=== PATIENT | female | born 1945 | race Caucasian/White ===

== ENCOUNTER 2024-11-18 15:34 | Emergency (ER) | payer OTHER ==
--- OUTSIDE RECORDS SUMMARY | 2024-11-18 15:38 | XMS REPORT | Continuity of Care Document ---
Author Name Unknown Address [address] [facility] [address] [place] [address] [facility] thconnect Address [address] [facility]. [address] [place] [address] Care Team Providers Care Dimension Specification Inspector Name Role Phone Armando Sheffield Attending Clinician Unavailable Porsche Norman L Attending Clinician Unavailable GC_GCBZW_Kadiyala_S Attending Clinician Unavaila ble GC_GCBZW_Kadiyala_S Admitting Clinician Unavaila ble Payers Payer Name Policy Type Policy Number Effective Date Expirati on Date Source [facility] MCR Advantage 1 [id number] 2020 00:00:00 [facility] (MEDICARE REPLACEMENT/ADVA NTAGE - PPO) [id number] Problems Condition Name Condition Details Condition Category Status Onset Date Resolution Date Last Treatment Date Treating Clinician Comments Source Osteoporos is Osteoporos is Problem Active 2023-10 00:00: 00 [facility] Glaucoma Glaucoma Problem Active 06-20 00:00: 00 [facility] Vitamin D deficiency Vitamin D Deficiency Problem Active 06-24 00:00: 00 [facility] Abnormal urine Abnormal Urine Problem Active 06-22 00:00: 00 [facility] Lateral cystocele Lateral Cystocele Problem Active 06-12 00:00: 00 [facility] Senile osteoporos is Senile Osteoporos is Problem Active 8 00:00: 00 [facility] Mixed urinary incontinen ce Mixed Urinary Incontinen ce Problem Active 8 00:00: 00 [facility] Inconclusi ve mammograph y finding Inconclusi ve Mammograph y Finding Problem Active 8 00:00: 00 [facility] Abnormal findings on diagnostic imaging of breast Abnormal Findings on Diagnostic Imaging of Breast Problem Active 06-12 00:00: 00 [facility] Screening mammograph y Screening Mammograph y Problem Active 06-12 00:00: 00 [facility] Screening for malignant neoplasm of colon Screening for Malignant Neoplasm of Colon Problem Active 06-12 00:00: 00 [facility] Gynecologi mary examinatio n abnormal Gynecologi mary Examinatio n Abnormal Problem Active 06-12 00:00: 00 [facility] Constipati on Constipati on Problem Active 6-11 00:00: 00 [facility] Genuine stress incontinen ce Genuine Stress Incontinen ce Problem Active 9-04 00:00: 00 [facility] Right upper quadrant pain Right Upper Quadrant Pain Problem Active 4-03 00:00: 00 [facility] Essential hypertensi on Essential Hypertensi on Problem Active 3-13 00:00: 00 [facility] 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 Problem Active 2-24 00:00: 00 [facility] Atrophic vaginitis Atrophic Vaginitis Problem Active 224 00:00: 00 [facility] Urinary incontinen ce Urinary Incontinen ce Problem Active 224 00:00: 00 [facility] Decreased hearing Decreased hearing Problem Common [facility] [id number] Irregular heart beat Problem Common [facility] [id number] Screening for cardiovasc ular condition Problem Common [facility] [id number] Adult general medical examinatio n Problem Common [facility] [id number] Elevated blood pressure reading Problem Common [facility] Age-relate d osteoporos is Osteoporos is, unspecifie d osteoporos is type, unspecifie d pathologic al fracture presence Problem Common [facility] [id number] Pneumococc al vaccine administer ed Problem [facility] Allergic rhinitis Allergic rhinitis, unspecifie d Problem [facility] Midline cystocele Cystocele, midline Problem [facility] Family history of malignant neoplasm of gastrointe stinal tract Family history of colon cancer Problem [facility] [id number] Atrial fibrillati on, unspecifie d type Problem [facility] Family history of cardiovasc ular disease Family history of cardiovasc ular disease Problem [facility] [id number] Mixed hyperlipid emia Problem [facility] [id number] Screening mammogram, encounter for Problem [facility]openia [id number] P[facility] (premature ventricula r contractio n) Problem [facility] [id number] Abnormal EKG Problem [facility] Hypercalce cody High calcium levels Problem [facility] Social History Social Habit Start Date Stop Date Quantity Comments Source History of Tobacco Use [facility] Sex Assigned At [facility] Smoking Status Start Date Stop Date Source Never Smoker [facility] Medications Ordered Medication Name Filled Medication Name Start Date Stop Date Current Medication? Ordering Clinician Indication Dosage Frequency Signature (SIG) Comments Components Source Alendronate Sodium 70 MG Alendronate Sodium 70 MG 2023-10 0-11 00:00: 00 No Alendronat e Sodium 70 MG PreserVisio n AREDS PreserVisio n AREDS No PreserVisi on AREDS Aspirin 81 MG Aspirin 81 MG No 1{table t} QD Aspirin 81 MG Travatan Z 0.004 % Travatan Z 0.004 % No 1{drop_ into_af fected_ eye_in_ the_eve rose mary} QD Travatan Z 0.004 % Restasis 0.05 % Restasis 0.05 % No 1{drop_ into_af fected_ eye} BID Restasis 0.05 % Estradiol 0.5 MG Estradiol 0.5 MG No 1{table t} QD Estradiol 0.5 MG Cranberry 450 MG Cranberry 450 MG No 1{table t} QD Cranberry 450 MG Vitamin D3 50 MCG (1999) Vitamin D3 50 MCG (1999) No 4{table ts} QD Vitamin D3 50 MCG (1999) Timolol Maleate 0.5 % Timolol Maleate 0.5 % No Timolol Maleate 0.5 % Calcium 600 Calcium 600 No Ca lcium 600 [facility] cranberry 400 mg capsule Take by oral route. cranberry 400 mg capsule Take by oral route. No cranberry 400 mg capsule Take by oral route. [facility] estradiol 0.01% (0.1 mg/gram) vaginal cream Insert 0.5 g 3 times a week by vaginal route at bedtime for 30 days. estradiol 0.01% (0.1 mg/gram) vaginal cream Insert 0.5 g 3 times a week by vaginal route at bedtime for 30 days. No .5g Q56H estradiol 0.01% (0.1 mg/gram) vaginal cream Insert 0.5 g 3 times a week by vaginal route at bedtime for 30 days. [facility] Multivitami n 50 Plus Multivitami n 50 Plus No Multivitam in 50 Plus [facility] omega3 1,000 mg-dha-epa- other [id number] oil 1,400 mg capsule,del ay rel Take by oral route. omega3 1,000 mg-dha-epa- other [id number] oil 1,400 mg capsule,del ay rel Take by oral route. No omega3 1,000 mg-dha-epa -other [id number] oil 1,400 mg capsule,de lay rel Take by oral route. [facility] PreserVisio n AREDS PreserVisio n AREDS No PreserVisi on AREDS [facility] Restasis 0.05 % eye drops in a dropperette INSTILL 1 DROP INTO AFFECTED EYE(S) BY OPHTHALMIC ROUTE EVERY 12 HOURS Restasis 0.05 % eye drops in a dropperette INSTILL 1 DROP INTO AFFECTED EYE(S) BY OPHTHALMIC ROUTE EVERY 12 HOURS No Restasis 0.05 % eye drops in a dropperett e INSTILL 1 DROP INTO AFFECTED EYE(S) BY OPHTHALMIC ROUTE EVERY 12 HOURS [facility] timolol 0.25 % eye drops INSTILL 1 DROP INTO AFFECTED EYE(S) BY OPHTHALMIC ROUTE 2 TIMES PER DAY timolol 0.25 % eye drops INSTILL 1 DROP INTO AFFECTED EYE(S) BY OPHTHALMIC ROUTE 2 TIMES PER DAY No timolol 0.25 % eye drops INSTILL 1 DROP INTO AFFECTED EYE(S) BY OPHTHALMIC ROUTE 2 TIMES PER DAY [facility] aspirin 81 mg capsule Take 1 capsule every day by oral route. aspirin 81 mg capsule Take 1 capsule every day by oral route. No 1capsul e(s) Q1D aspirin 81 mg capsule Take 1 capsule every day by oral route. [facility] losartan losartan No losartan [facility] Vitamin D3 Vitamin D3 No Vitamin D3 [facility] Fosamax Fosamax No Fosamax P [facility] Immunizations Ordered Immunization Name Filled Immunization Name Date Status Comments Source Pneumovax (PPSV23) Pneumovax (PPSV23) 2022-08-13 09:56:00 Completed [facility] FluAD FluAD 2021-08-12 09:49:00 Completed [facility] FluAD FluAD 2021-08-12 09:49:00 Completed [facility] FluAD FluAD 2021-08-12 09:49:00 Completed [facility] FluAD FluAD 2020-12-29 11:22:00 Completed [facility] FluAD FluAD 2020-12-29 11:22:00 Completed [facility] FluAD FluAD 2020-12-29 11:22:00 Completed [facility] Shingrix Shingrix 2020-08-23 11:23:00 Completed [facility] Shingrix Shingrix 2020-08-23 11:23:00 Completed [facility] Shingrix Shingrix 2020-08-23 11:23:00 Completed [facility] Prevnar 13 -Pneumonia Vaccine Prevnar 13 -Pneumonia Vaccine 2018-03-22 12:12:00 Completed [facility] Prevnar 13 -Pneumonia Vaccine Prevnar 13 -Pneumonia Vaccine 2018-03-22 12:12:00 Completed [facility] Prevnar 13 -Pneumonia Vaccine Prevnar 13 -Pneumonia Vaccine 2018-03-22 12:12:00 Completed [facility] Prevnar 13 -Pneumonia Vaccine Prevnar 13 -Pneumonia Vaccine 2018-03-22 00:00:00 Completed [facility] Fluad (aIIV4) - SDS - 0.5mL Fluad (aIIV4) - SDS - 0.5mL Unknown Completed [facility] FluAD FluAD Unknown Completed [facility] Shingrix Shingrix Unknown Completed [facility] Pneumovax (PPSV23) Pneumovax (PPSV23) Unknown Completed [facility] Prevnar 13 -Pneumonia Vaccine Prevnar 13 -Pneumonia Vaccine Unknown Completed [facility] FluAD Quad SD FluAD Quad SD Unknown Completed [facility] FluAD FluAD Unknown Completed [facility] Shingrix Shingrix Unknown Completed [facility] Pneumovax (PPSV23) Pneumovax (PPSV23) Unknown Completed [facility] Prevnar 13 -Pneumonia Vaccine Prevnar 13 -Pneumonia Vaccine Unknown Completed [facility] Fluad (aIIV4) - SDS - 0.5mL Fluad (aIIV4) - SDS - 0.5mL Unknown Completed [facility] FluAD FluAD Unknown Completed [facility] Shingrix Shingrix Unknown Completed [facility] Pneumovax (PPSV23) Pneumovax (PPSV23) Unknown Completed [facility] Prevnar 13 -Pneumonia Vaccine Prevnar 13 -Pneumonia Vaccine Unknown Completed [facility] Vital Signs Vital Name Observation Time Observation Value Comments S ource Body Weight 2024-10-01 00:00:00 117.8 [lb_av] [facility] BP Diastolic 2024-10-01 00:00:00 76 mm[Hg] [facility] BP Systolic 2024-10-01 00:00:00 148 mm[Hg] [facility] Height 2024-10-01 00:00:00 61 [in_i] [facility] height 2024-08-03 09:15:00 66.00 [in_i] Com [facility] weight 2024-08-03 09:15:00 117.4 [lb_av] Co [facility] temperature 2024-08-03 09:15:00 96.3 [degF] Com [facility] bmi 2024-08-03 09:15:00 18.95 kg/m2 Comm on [facility] oximetry 2024-08-03 09:15:00 99 % Commo n [facility] blood pressure systolic 2024-08-03 09:15:00 118 mm[Hg] Common [facility] blood pressure diastolic 2024-08-03 09:15:00 64 mm[Hg] Common [facility] BP Systolic 2024-07-02 00:00:00 152 mm[Hg] [facility] BMI (Body Mass Index) 2024-07-02 00:00:00 22.3 kg/m2 [facility] BP Diastolic 2024-07-02 00:00:00 79 mm[Hg] [facility] Height 2024-07-02 00:00:00 61 [in_i] [facility] Body Weight 2024-07-02 00:00:00 118.2 [lb_av] [facility] BMI (Body Mass Index) 2024-01-18 00:00:00 22.5 kg/m2 [facility] Body Weight 2024-01-18 00:00:00 119.2 [lb_av] [facility] BP Systolic 2024-01-18 00:00:00 151 mm[Hg] [facility] Height 2024-01-18 00:00:00 61 [in_i] [facility] BP Diastolic 2024-01-18 00:00:00 82 mm[Hg] [facility] height 2023-08-03 08:40:00 66.00 [in_i] Com [facility] weight 2023-08-03 08:40:00 119.0 [lb_av] Co mmon [facility] temperature 2023-08-03 08:40:00 97.9 [degF] Com [facility] bmi 2023-08-03 08:40:00 19.21 kg/m2 Comm on [facility] oximetry 2023-08-03 08:40:00 98 % Commo n [facility] respiratory rate 2023-08-03 08:40:00 18 /min Common [facility] blood pressure systolic 2023-08-03 08:40:00 117 mm[Hg] [facility] blood pressure diastolic 2023-08-03 08:40:00 73 mm[Hg] [facility] height 2023-02-01 10:40:00 66.00 [in_i] Com [facility] weight 2023-02-01 10:40:00 123 [lb_av] Comm on [facility] temperature 2023-02-01 10:40:00 98.1 [degF] Com [facility] bmi 2023-02-01 10:40:00 19.85 kg/m2 Comm on [facility] oximetry 2023-02-01 10:40:00 97 % Commo n [facility] respiratory rate 2023-02-01 10:40:00 16 /min [facility] blood pressure systolic 2023-02-01 10:40:00 122 mm[Hg] Common [facility] blood pressure diastolic 2023-02-01 10:40:00 80 mm[Hg] Common [facility] height 2023-02-01 11:00:00 66.00 [in_i] Com [facility] weight 2023-02-01 11:00:00 123 [lb_av] Comm on [facility] temperature 2023-02-01 11:00:00 98.1 [degF] Com [facility] bmi 2023-02-01 11:00:00 19.85 kg/m2 Comm on [facility] oximetry 2023-02-01 11:00:00 97 % Commo n [facility] respiratory rate 2023-02-01 11:00:00 16 /min [facility] blood pressure systolic 2023-02-01 11:00:00 122 mm[Hg] Common [facility] blood pressure diastolic 2023-02-01 11:00:00 80 mm[Hg] Common [facility] height 2022-08-13 09:30:00 66.00 [in_i] Com [facility] weight 2022-08-13 09:30:00 127.4 [lb_av] Co [facility] temperature 2022-08-13 09:30:00 97.3 [degF] Com [facility] bmi 2022-08-13 09:30:00 20.56 kg/m2 Comm on [facility] oximetry 2022-08-13 09:30:00 99 % Commo n [facility] respiratory rate 2022-08-13 09:30:00 16 /min [facility] blood pressure systolic 2022-08-13 09:30:00 137 mm[Hg] Common [facility] blood pressure diastolic 2022-08-13 09:30:00 73 mm[Hg] [facility] height 2022-02-11 10:00:00 66.00 [in_i] Com [facility] weight 2022-02-11 10:00:00 129.0 [lb_av] Co on [facility] temperature 2022-02-11 10:00:00 97.3 [degF] Com [facility] bmi 2022-02-11 10:00:00 20.82 kg/m2 Comm on [facility] oximetry 2022-02-11 10:00:00 97 % Commo n [facility] respiratory rate 2022-02-11 10:00:00 17 /min [facility] blood pressure systolic 2022-02-11 10:00:00 139 mm[Hg] Common [facility] blood pressure diastolic 2022-02-11 10:00:00 73 mm[Hg] Common [facility] height 2022-02-11 09:50:00 66.00 [in_i] Com [facility] weight 2022-02-11 09:50:00 129.0 [lb_av] Co [facility] temperature 2022-02-11 09:50:00 97.3 [degF] Com [facility] bmi 2022-02-11 09:50:00 20.82 kg/m2 Comm on [facility] oximetry 2022-02-11 09:50:00 97 % Commo n [facility] respiratory rate 2022-02-11 09:50:00 17 /min [facility] blood pressure systolic 2022-02-11 09:50:00 139 mm[Hg] Common [facility] blood pressure diastolic 2022-02-11 09:50:00 73 mm[Hg] [facility] height 2021-08-12 09:30:00 66.00 [in_i] Com [facility] weight 2021-08-12 09:30:00 131.3 [lb_av] Co [facility] temperature 2021-08-12 09:30:00 97.7 [degF] Com [facility] bmi 2021-08-12 09:30:00 21.19 kg/m2 Comm on [facility] oximetry 2021-08-12 09:30:00 96 % Commo n [facility] respiratory rate 2021-08-12 09:30:00 17 /min [facility] blood pressure systolic 2021-08-12 09:30:00 134 mm[Hg] Common [facility] blood pressure diastolic 2021-08-12 09:30:00 62 mm[Hg] Common [facility] Procedures Procedure Date / Time Performed Performing Clinicia n Source MAMMO, screening, digital, bilateral 2024-07-02 00:00:00 [facility] Repair of Cystocele 2016-10-24 00:00:00 [facility] Breast Biopsy 2003-10-24 00:00:00 [facility] Tubal Ligation 1982-10-24 00:00:00 [facility] Hemorrhoidectomy 1969-10-24 00:00:00 [facility] Tonsillectomy 1953-10-24 00:00:00 [facility] Encounters Start Date/Time End Date/Time Encounter Type Admission Type Attending Clinicians Care Facility Care Department Encounter ID Source 2024-08-02 11:15:00 [facility] [id number] [facility] 2023-02-01 10:39:00 Outpatient Sheffield, [facility] [id number] [facility] 2023-01-25 10:46:00 Outpatient Sheffield, [facility] [id number] [facility] 2022-08-11 08:47:00 Outpatient Sheffield, [facility] [id number] [facility] 2022-06-01 10:28:01 Outpatient Sheffield, [facility] [id number] [facility] 2021-11-18 14:02:18 Outpatient Sheffield, [facility] [id number] [facility] 2021-11-18 12:53:52 Outpatient Sheffield, [facility] [id number] [facility] 2021-11-18 12:39:46 Outpatient Sheffield, [facility] [id number] [facility] 2021-11-18 12:37:16 [facility] Norman [facility] [id number] [facility] 2021-11-18 12:36:18 Out[facility] Porsche Norman [facility] [id number] [facility] 2021-11-18 12:28:12 Outpatient Porsche Norman [facility] [id number] [facility] 2024-10-01 00:00:00 2024-10-01 00:00:00 LAZARO RamachandranP: [address], [place] [address] , Ph. [facility] - GC_GCBZW_Christiana [facility]* [id number] [facility] 2024-08-03 00:00:00 2024-08-03 00:00:00 OFFICE VISIT ESTAB PT LEVEL 4 [facility] [id number] [facility] 2024-07-02 00:00:00 2024-07-02 00:00:00 ESPINOZA Kovacs: [address], [place] [address] , Ph. [facility] - GC_GCBZW_Christiana cabrera [place]* [id number] [facility] 2024-01-18 00:00:00 2024-01-18 00:00:00 ESPINOZA Kovacs: [address], [place] [address] , Ph. GC_GCBZW_Ka diyala_S [facility] - GC_GCBZW_Christiana deborah [place]* [id number] [facility] 2024-01-16 00:00:00 2024-01-16 00:00:00 Outpatient GC_GCBZW_Ka diyala_S PRIV PRIV [id number] [facility] 2024-01-14 00:00:00 2024-01-14 00:00:00 Outpatient GC_GCBZW_Ka diyala_S PRIV PRIV [id number] [facility] 2023-12-30 00:00:00 2023-12-30 00:00:00 Outpatient GC_GCBZW_Ka diyala_S PRIV PRIV [id number] [facility] 2023-12-12 00:00:00 2023-12-12 00:00:00 Outpatient GC_GCBZW_Ka diyala_S PRIV PRIV [id number] [facility] 2023-12-07 00:00:00 2023-12-07 00:00:00 Outpatient GC_GCBZW_Ka diyala_S PRIV PRIV [id number] [facility] 2023-08-12 00:00:00 2023-08-12 00:00:00 Outpatient GC_GCBZW_Ka diyala_S PRIV PRIV [id number] [facility] 2023-08-03 00:00:00 2023-08-03 00:00:00 OFFICE VISIT ESTAB PT LEVEL 4 [facility] [id number] [facility] 2023-06-22 00:00:00 2023-06-22 00:00:00 Outpatient GC_GCBZW_Ka diyala_S PRIV PRIV [id number] [facility] 2023-06-09 00:00:00 2023-06-09 00:00:00 Outpatient GC_GCBZW_Ka diyala_S PRIV PRIV [id number] [facility] 2023-02-01 00:00:00 2023-02-01 00:00:00 OFFICE VISIT ESTAB PT LEVEL 4 [facility] [id number] [facility] 2023-02-01 00:00:00 2023-02-01 00:00:00 SUB ANNUAL MCR WELLNESS VISIT [facility] [id number] [facility] 2022-08-13 00:00:00 2022-08-13 00:00:00 OFFICE VISIT ESTAB PT LEVEL 4 [facility] [id number] [facility] 2022-02-11 00:00:00 2022-02-11 00:00:00 SUB ANNUAL MCR WELLNESS VISIT [facility]C [facility] [id number] [facility] 2022-02-11 00:00:00 2022-02-11 00:00:00 OFFICE VISIT ESTAB PT LEVEL 4 [facility] [id number] [facility] 2022-02-04 00:00:00 2022-02-04 00:00:00 (TEL) [facility]C [facility] [id number] [facility] 2021-08-12 00:00:00 2021-08-12 00:00:00 OFFICE VISIT ESTAB PT LEVEL 4 [facility] [id number] [facility] 2021-02-10 00:00:00 2021-02-10 00:00:00 Outpatient [facility] [id number] [facility] 2021-02-10 00:00:00 2021-02-10 00:00:00 Outpatient [facility] [id number] [facility] 2020-12-29 00:00:00 2020-12-29 00:00:00 Outpatient [facility] [id number] [facility] 2018-04-21 10:30:00 2018-04-21 10:30:00 Outpatient [facility] Medicine [facility] [id number] [facility] 2018-03-22 10:00:00 2018-03-22 10:00:00 [facility] [id number] [facility]
[2024-11-18] MEDS ORDERED: NA CHLORIDE 0.9% 1,000 ML ONE (16:44)
[2024-11-18 17:01] LABS: Absolute Lymphocytes (CBC) 0.4 K/uL (0.7-4.9); Absolute Monocytes 0.7 K/uL (0.1-1.3); Absolute Neutrophil 5.3 K/uL (1.8-8.0); Basophils % 0.4 % (0-1.3); Eosinophils % 0.6 % (0-4.4); Hematocrit 40.1 % (36.0-45.0); Hemoglobin 13.9 g/dL (12.0-15.0); Lymphocytes % 6.8 % (15.3-44.8); MCH 31.3 pg (27.0-35.0); MCHC 34.8 g/dL (32.0-36.0); MCV 89.8 fL (80-100); MPV 8.9 fL (7.6-11.3); Monocytes % 10.4 % (3.3-12.3); Neutrophils % 81.8 % (41.7-73.7); Nucleated Red Blood Cells % 0.1 % (0-0); Platelets 229 thou/uL (152-406); RBC Red Blood Cell Count 4.46 M/uL (3.86-4.86)
[2024-11-18 17:16] LABS: Albumin 3.8 g/dL (3.4-5.0); Anion Gap 10.3 mEq/L (5.0-15.0); Bilirubin Total 0.6 mg/dL (0.2-1.0); Globulin 3.8 g/dL (2.3-3.5); Potassium 4.3 mEq/L (3.5-5.1); Protein, Total 7.6 g/dL (6.4-8.2)
--- NOTE | 2024-11-18 18:22 | RAD REPORT ---
EXAMINATION: CT ABDOMEN AND PELVIS WITH CONTRAST CLINICAL INDICATION: Female, 79 years old.ABD PAIN TECHNIQUE: CT abdomen and pelvis was performed, after the administration of IV contrast, [facility]. Axial, sagittal and coronal reconstructions were obtained. One or more of the following dose reduction techniques were used: Automated exposure control, adjustment of the mA and/o r kV according to patient size, and/or iterative reconstruction. Unless otherwise specified, incidental findings do not require dedicated imaging follow-up. [id number]. COMPARISON: No prior exam. FINDINGS: LOWER CHEST: No acute process identified.No significant pericardial effusion. Mild circumferential th ickening of the distal esophagus which could reflect esophagitis. UPPER GI: No significant abnormality. LIVER: No significant focal abnormality. GALLBLADDER/BILE DUCTS: No biliary ductal dilatation.? PANCREAS: Atrophy, but otherwise unremarkable. SPLEEN: Unremarkable. ADRENALS: No adrenal masses. KIDNEYS AND URETERS: No hydronephrosis.Low density and/or too small to characterize renal lesions whi ch are statistically benign. ABDOMINAL AORTA AND OTHER VESSELS: Mild atherosclerotic changes. PERITONEUM: No abnormal free fluid. No free air. LYMPH NODES: No pathologic lymphadenopathy. ABDOMINAL WALL: Unremarkable SMALL BOWEL/COLON: Small bowel has normal course and caliber. No colonic wall thickening or pericolon ic inflammatory changes.Normal appendix. Moderate diverticulosis without diverticulitis. URINARY BLADDER: Underdistended but grossly unremarkable. REPRODUCTIVE ORGANS: Gas present within the endometrial canal and vagina probably of little significa nce. MUSCULOSKELETAL: Multilevel degenerative changes in the spine. No acute fracture. ADDITIONAL FINDINGS: None. IMPRESSION: No acute or significant abnormalities seen in the abdomen or pelvis. Incidental findings as noted abo ve.
[2024-11-18 19:10] LABS: Specific Gravity > 1.030 (1.005-1.030); Urine Bilirubin NEGATIVE (Negative); Urine Blood Negative (Negative); Urine Clarity Clear (Clear); Urine Color Light-Yellow (Yellow); Urine Glucose NEGATIVE (Negative); Urine Ketones 1+ (Negative); Urine Microscopic Reflex YN NO UMIC; Urine Nitrite NEGATIVE (Negative); Urine Protein NEGATIVE (Negative); Urine Urobilinogen Normal (Normal); Urine pH 6.5 (5.0-7.0)
--- NOTE | 2024-11-18 19:27 | ER ---
Nurse's Notes [facility] Name: Queenie Lock Age: 79 yrs Sex: Female : 1945 Arrival Date: 11/18/2024 Time: 15:34 Bed 11 Private MD: Diagnosis: Diverticulosis of large intestine without perforation or abscess without bleeding;Abdominal pain, unspecified Presentation: 11/18 16:19 Chief complaint: Patient states: ABD PAIN LOWER BACK PAIN STARTED YESTERDAY WITH CHILLS db AND FEELS LIKE FEVER. REPORTS BLURRY VISION TODAY. Coronavirus screen: Client denies travel out of the [place] in the last 14 days. At this time, the client does not indicate any symptoms associated with coronavirus-19. Ebola Screen: Patient negative for fever greater than or equal to 101.5 degrees Fahrenheit, and additional compatible Ebola Virus Disease symptoms Patient denies exposure to infectious person. Patient denies travel to an Ebola-affected area in the 21 days before illness onset. No symptoms or risks identified at this time. Initial Sepsis Screen: Does the patient meet any 2 criteria? No. Patient's initial sepsis screen is negative. Does the patient have a suspected source of infection? No. Patient's initial sepsis screen is negative. Risk Assessment: Do you want to hurt yourself or someone else? Patient reports no desire to harm self or others. Onset of symptoms was November 17, 2024. 16:19 Method Of Arrival: Ambulatory db 16:19 Acuity: NATHNE 3 db Triage Assessment: 16:21 General: Appears in no apparent distress. uncomfortable, Behavior is calm, cooperative. db Pain: Complains of pain in abdomen. Neuro: Level of Consciousness is awake, alert, obeys commands, Oriented to person, place, time, situation. GI: Abdomen is flat, Reports lower abdominal pain. Historical: - Allergies: 16:20 No Known Allergies; db - PMHx: 16:21 Congestive heart failure; Atrial fibrillation; Osteoporosis; db - PSHx: 16:22 BLADDER SLING; db - Immunization history:: Adult Immunizations unknown. - Infectious Disease History:: Denies. - Social history:: Smoking status: Patient denies any tobacco usage or history of. Screenin:46 [facility] ED Fall Risk Assessment (Adult) History of falling in the last 3 months, hb including since admission No falls in past 3 months (0 pts) Confusion or Disorientation No (0 pts) Intoxicated or Sedated No (0 pts) Impaired Gait No (0 pts) Mobility Assist Device Used No (0 pt) Altered Elimination No (0 pt) Score/Fall Risk Level 0 - 2 = Low Risk Oriented to surroundings, Maintained a safe environment, Educated pt \\T\\ family on fall prevention, incl call for assistance when getting out of bed. Abuse screen: Denies threats or abuse. Denies injuries from another. Nutritional screening: No deficits noted. Tuberculosis screening: No symptoms or risk factors identified. Assessment: 16:46 General: Appears in no apparent distress. Behavior is calm, cooperative. Pain: Denies hb pain. Neuro: Level of Consciousness is awake, alert, obeys commands, Oriented to person, place, time, situation. Cardiovascular: Patient's skin is warm and dry. Respiratory: Respiratory effort is even, unlabored, Respiratory pattern is regular, symmetrical. GI: Reports "FEELING YUCKY". : No signs and/or symptoms were reported regarding the genitourinary system. EENT: No signs and/or symptoms were reported regarding the EENT system. Derm: Skin is pink, warm \\T\\ dry. Musculoskeletal: No signs and/or symptoms reported regarding the musculoskeletal system. 19:40 Reassessment: Patient appears in no apparent distress at this time. Patient and/or kj2 family updated on plan of care and expected duration. Pain level reassessed. Patient is alert, oriented x 3, equal unlabored respirations, skin warm/dry/pink. GI: Bowel sounds present X 4 quads. Abd is soft X 4 quads. Vital Signs: 16:19 BP 170 / 90; Pulse 89; Resp 18; Temp 99.8(O); Pulse Ox 93% ; db 19:41 BP 158 / 86; Pulse 80; Resp 20; Temp 97.9; Pulse Ox 100% ; kj2 ED Course: 15:37 Patient arrived in ED. im 15:56 Tessa Tan FNP-C [facility] kb 15:56 Jay Diop MD is Attending Physician. kb 16:20 Triage completed. db 16:22 Arm band placed on. db 16:43 Lottie Mancilla, RN is Primary Nurse. hb 16:46 Patient has correct armband on for positive identification. Provided Education on: hb TESTS, RESULT TIMES, MEDICATIONS. 16:46 No provider procedures requiring assistance completed. hb 16:54 CBC with Diff Sent. bc6 16:54 CMP Sent. bc6 16:54 Lipase Sent. bc6 16:54 Initial lab(s) drawn, by in, sent to lab. Inserted saline lock: 20 gauge in left 6 antecubital area, using aseptic technique. Blood collected. Flushed with 10 mL NS. 17:53 PHCP role handed off by Tessa Tan FNP-C cp 17:53 Terrence Keene PA is PHCP. cp 18:08 CT Abd/Pelvis - IV Contrast Only In Process Unspecified. EDMS 19:00 Urinalysis w/ reflexes Sent. ko1 19:00 Urine collected: clean catch specimen. ko1 19:42 IV discontinued, intact, bleeding controlled, No redness/swelling at site. Pressure kj2 dressing applied. Administered Medications: 16:45 Drug: NS 0.9% IV 1000 ml IV at 1 bolus Per protocol; to be given as a bolus over 60 hb minutes Route: IV; Rate: 1 bolus; Site: left antecubital; 18:23 Follow up: Response: No adverse reaction; IV Status: Completed infusion; IV Intake: ko1 1000ml 19:53 Drug: metroNIDAZOLE PO 500 mg PO once Route: PO; kj2 19:54 Follow up: Response: Medication administered at discharge. kj2 19:54 Drug: Ciprofloxacin PO 500 mg PO once Route: PO; kj2 19:54 Follow up: Response: Medication administered at discharge. kj2 Medication: 16:46 VIS not applicable for this client. hb Intake: 18:23 IV: 1000ml; Total: 1000ml. ko1 Outcome: 19:26 Discharge ordered by . cp 19:42 Discharged to home ambulatory, kj2 19:42 Condition: stable 19:42 Discharge instructions given to patient, Instructed on discharge instructions, follow up and referral plans. Demonstrated understanding of instructions, follow-up care, 19:54 Patient left the ED. kj2 Signatures: Dispatcher [employer] EDSD Tessa Tan FNP-C FNP-Terrence Castrejon PA PA cp Baxter, Heather, RN RN Mikala Celis RN RN ko1 Alison Honeycutt RN RN db [place], Breana [facility] Meredith Tabares Krystal, RN RN kj2 Corrections: (The following items were deleted from the chart) 16: 16:19 Chief complaint: Patient states: ABD PAIN LOWER BACK PAIN STARTED YESTERDAY WITH db CHILLS AND FEELS LIKE FEVER db 16:20 Social history: Smoking status: Patient denies any tobacco usage or history of. dbdb
--- NOTE | 2024-11-18 19:27 | EDPHYS ---
Physician Documentation [facility] Name: Queenie Lock Age: 79 yrs Sex: Female : 1945 Arrival Date: 11/18/2024 Time: 15:34 Bed 11 Private MD: ED Physician Jay Diop HPI: 11/18 17:21 This 79 yrs old Female presents to ER via Ambulatory with complaints of Abdominal Pain, kb Chills, Blurred Vision. 17:21 Patient is an 79-year-old female who presents for lower abdominal pain that radiates to kb the back and chills that started this morning. States the abdominal pain started first and then she has developed back pain and chills this afternoon. Reports she has had episodes like this since June, once or twice a month. States she has not gotten it evaluated in the past but today was worse than normal so that is why she came in today.. Historical: - Allergies: 16:20 No Known Allergies; db - PMHx: 16:21 Congestive heart failure; Atrial fibrillation; Osteoporosis; db - PSHx: 16:22 BLADDER SLING; db - Immunization history:: Adult Immunizations unknown. - Infectious Disease History:: Denies. - Social history:: Smoking status: Patient denies any tobacco usage or history of. ROS: 17:21 Constitutional: As per HPI kb Exam: 17:21 Constitutional: This is a well developed, well nourished patient who is awake, alert, kb and in no acute distress. Head/Face: Normocephalic, atraumatic. ENT: Moist Mucous membranes Cardiovascular: Regular rate Respiratory: Respirations even and unlabored. No increased work of breathing. Talking in full sentences Abdomen/GI: Soft, non-tender. No distention Skin: Warm, dry with normal turgor. Normal color. MS/ Extremity: Pulses equal, no cyanosis. Neurovascular intact. Full, normal range of motion. Neuro: Awake and alert, GCS 15, oriented to person, place, time, and situation. Vital Signs: 16:19 BP 170 / 90; Pulse 89; Resp 18; Temp 99.8(O); Pulse Ox 93% ; db 19:41 BP 158 / 86; Pulse 80; Resp 20; Temp 97.9; Pulse Ox 100% ; kj2 MDM: 15:56 Medical Screening Exam initiated kb 17:23 Data reviewed: vital signs, nurses notes. kb 17:53 Historians other than the Patient: Daughter/Son: daughter. Transition of care: After a kb detail discussion of the patient's case, care is transferred to Terrence DORAN. 11/18 16:20 Order name: CBC with Diff; Complete Time: 17:06 kb 11/18 19:20 Interpretation: Normal except: GARCIA% 81.8; LYM% 6.8; LYMA 0.4. cp 11/18 16:20 Order name: CMP; Complete Time: 17:21 kb 11/18 19:24 Interpretation: Normal except: NA 133; GLUC 107. cp 11/18 16:20 Order name: Lipase; Complete Time: 17:21 kb 11/18 16:20 Order name: Urinalysis w/ reflexes; Complete Time: 19:19 kb 11/18 19:19 Interpretation: Normal except: Urine SG > 1.030; UKET 1+. cp 11/18 16:20 Order name: CT Abd/Pelvis - IV Contrast Only; Complete Time: 19:19 kb 11/18 16:20 Order name: IV Saline Lock; Complete Time: 16:54 kb 11/18 16:20 Order name: Labs collected and sent; Complete Time: 16:54 kb 11/18 19:25 Order name: PO challenge; Complete Time: 19:53 cp Administered Medications: 16:45 Drug: NS 0.9% IV 1000 ml IV at 1 bolus Per protocol; to be given as a bolus over 60 hb minutes Route: IV; Rate: 1 bolus; Site: left antecubital; 18:23 Follow up: Response: No adverse reaction; IV Status: Completed infusion; IV Intake: ko1 1000ml 19:53 Drug: metroNIDAZOLE PO 500 mg PO once Route: PO; kj2 19:54 Follow up: Response: Medication administered at discharge. kj2 19:54 Drug: Ciprofloxacin PO 500 mg PO once Route: PO; kj2 19:54 Follow up: Response: Medication administered at discharge. kj2 Disposition: 11/19 17:21 Co-signature as Attending Physician, Jay Diop MD I reviewed the patient's care rn provided by the Advanced Practice Provider and agree with the diagnosis and treatment plan. Disposition Summary: 11/18/24 19:26 Discharge Ordered Notes: Location: Home cp Problem: new cp Symptoms: have improved cp Condition: Stable cp Diagnosis - Diverticulosis of large intestine without perforation or abscess without bleeding cp - Abdominal pain, unspecified cp Followup: cp - With: Private Physician - When: 2 - 3 days - Reason: Recheck today's complaints Discharge Instructions: - Discharge Summary Sheet cp - Abdominal Pain, Adult cp - Diverticulosis cp Forms: - Medication Reconciliation Form cp - Antibiotic Education cp - Prescription Opioid Use cp - Patient Portal Instructions cp - Leadership Thank You Letter cp Prescriptions: - Zofran 4 mg Oral Tablet - take 1 tablet ORAL route every 12 hours As needed; 20 tablet; Refills: 0, cp Product Selection Permitted - Cipro 500 mg Oral tablet - take 1 tablet ORAL route every 12 hours for 10 days; 20 tablet; Refills: 0, cp Product Selection Permitted - Metronidazole 500 mg Oral Tablet - take 1 tablet ORAL route every 8 hours; 30 tablet; Refills: 0, Product cp Selection Permitted - dicyclomine 20 mg Oral tablet - take 1 tablet ORAL route 3 times per day; 30 tablet; Refills: 0, Product cp Selection Permitted Signatures: Dispatcher [employer] EDMS Tessa Tan, SECURITY DIRECTOR-C SECURITY DIRECTOR-CkJay Gupta MD MD rn Page, Corey, PA PA cp Lottie Mancilla RN RN Alison Mckeon RN RN db Cheli Pavon RN RN kj2 Mikala Ceils RN ko1 Corrections: (The following items were deleted from the chart) 11/18 16:21 16:21 CBC+H.LAB.BRZ ordered. EDMS EDMS 16:21 16:21 COMPREHENSIVE METABOLIC PANEL+C.LAB.BRZ ordered. EDMS EDMS 16:21 16:21 LIPASE+C.LAB.BRZ ordered. EDMS EDMS 16:21 16:21 Urinalysis+U.LAB.BRZ ordered. EDMS EDMS 16:21 16:20 Social history: Smoking status: Patient denies any tobacco usage or history of. dbdb
[2024-11-18] MEDS ORDERED: metroNIDAZOLE 500 MG TABLET ONE (19:46)
[2024-11-18] MEDS ORDERED: CIPROFLOXACIN HCL 500 MG TAB ONE (19:46)
[2024-11-18 23:36] VITALS: BP 158/86; TEMP 97.9; O2SAT 100
== END 2024-11-18 19:54 | disposition home or self-care (01) ==
LOC: ER 15:34
DX: K57.30 Diverticulosis of large intestine without perforation or abscess without bleeding (principal)
CPT/HCPCS: 96361; 85025; 36415; 81003; 83690; 80053; 74177; 96360; 99284; Q9967; J7030

== ENCOUNTER 2025-02-05 12:31 | Day surgery (SDC) | payer OTHER ==
[2025-01-31 14:24] LABS: Absolute Basophils 0.1 K/uL (0-0.5); Absolute Eosinophils 0.2 K/uL (0-0.5); Absolute Lymphocytes (CBC) 1.7 K/uL (0.7-4.9); Absolute Monocytes 0.5 K/uL (0.1-1.3); Absolute Neutrophil 3.2 K/uL (1.8-8.0); Basophils % 1.1 % (0-1.3); Eosinophils % 4.2 % (0-4.4); Hematocrit 39.7 % (36.0-45.0); Hemoglobin 13.8 g/dL (12.0-15.0); Lymphocytes % 30.5 % (15.3-44.8); MCH 31.1 pg (27.0-35.0); MCHC 34.7 g/dL (32.0-36.0); MCV 89.7 fL (80-100); MPV 9.2 fL (7.6-11.3); Monocytes % 8.1 % (3.3-12.3); Neutrophils % 56.1 % (41.7-73.7); Platelets 262 thou/uL (152-406); RBC Red Blood Cell Count 4.42 M/uL (3.86-4.86); Red Cell Distribution Width 14.2 % (12.1-15.2)
[2025-01-31 15:01] LABS: PT Prothrombin Time 10.8 SECONDS (10-13.0); Protime INR 0.94
--- NOTE | 2025-01-31 20:43 | RAD REPORT ---
EXAMINATION: TWO VIEW CHEST XR CLINICAL INDICATION: Female, 79 years old. 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 Hypertension TECHNIQUE: 2 view radiographs of the chest were performed. COMPARISON: No prior exam. FINDINGS: The lungs are hyperexpanded suggesting COPD. No pneumothorax or sizable effusion. The heart is normal in size. Mediastinal contours are unremarkable. IMPRESSION: No acute or significant abnormalities.
--- NOTE | 2025-02-01 14:17 | EKG ---
Test Date: 2025-01-31 Test Time: 14:05:19 Bank Secrecy Act Officer: [place] MEASUREMENT RESULTS: Intervals: Rate: 53 [place]: 158 QRSD: 80 QT: 414 QTc: 388 [place]: P: 54 [place]: 158 QRS: 21 T: 49 INTERPRETIVE STATEMENTS: Sinus bradycardia Nonspecific T wave abnormality Abnormal ECG Compared to ECG 03/27/2018 08:55:05 T-wave abnormality now present Sinus rhythm no longer present Atrial premature complex(es) no longer present Electronically Signed On 02-01-25 14:13:16 CDT by John Diehl
[~2025-02-05 12:31] MED LIST: NA CHLORIDE 0.9% 500 ML ONE
[2025-02-05] MEDS ORDERED: MIDAZOLAM HCL 2 MG/2 ML INJ ONE (13:26)
[2025-02-05] MEDS ORDERED: FENTANYL CITR 100 MCG/2 ML ONE (13:26)
[2025-02-05] MEDS ORDERED: LIDOCAINE 1% 20 ML MDV ONE (13:40)
[2025-02-05] MEDS ORDERED: HEPARIN 10,000 UNIT/10 ML VIAL IV ONE (13:40)
[2025-02-05] MEDS ORDERED: HEPA 1000U/500MLS 2,000 UNIT/1,000 ML BAG IV ONE (13:40)
[2025-02-05] MEDS ORDERED: VERAPAMIL HCL 10 MG/4 ML VIAL IV ONE (13:40)
[2025-02-05] MEDS ORDERED: ATROPINE SULF 1 MG/10 ML SYR IV ONE (13:41)
[2025-02-05] MEDS ORDERED: ASPIRIN 325 MG TAB ONE (13:42)
[2025-02-05] MEDS ORDERED: CLOPIDOGREL 75 MG TABLET ONE (13:42)
[2025-02-05] MEDS ORDERED: TICAGRELOR 90 MG TABLET PO ONE (13:42)
[2025-02-05] MEDS ORDERED: HEPARIN 5000 UNIT/ML 1 ML VIAL ONE (13:42)
--- NOTE | 2025-02-05 15:11 | OP ---
Date of Procedure: 02/05/2025 Surgeon: TASHA HANDY Procedures Performed: 1. Selective coronary angiogram. 2. Left heart catheterization. Indication: V-tach. Access: Right radial artery 6-Belgian closed with TR band. Complications: None. Bleeding: Less than 50 mL. Total Sedation Time: 45 minutes. Description Of Procedure: After risks, benefits, and alternatives were explained, the patient agreed to procedure and signed informed consent. The [facility] prepped and draped in usual sterile fashion. Then, I accessed right radial artery using pedi atric micropuncture kit and placed 6-Belgian slender sheath. Took 5-Belgian Mathews 4.0 catheter into th e aortic root over a J-wire across the aortic valve, measured the LVEDP. Pullback did not record any gradient, then engaged the left main, took standard views, and then in the RCA, took standard views and then I removed the catheter and the sheath, placed TR band with good hemostasis. Findings: 1. Left main normal. 2. LAD; large and normal. Normal diagonal branches. 3. Left circumflex; large and dominant and normal. Normal OM branches. 4. RCA; small, nondominant, and normal. 5. LVEDP is normal at 7 mmHg. Conclusion: 1. Normal coronary arteries. 2. Normal LVEDP. Recommendation: Medical management. SR/MODL Voice ID: [id number] Report ID: [id number]
[2025-02-05 17:02] VITALS: O2SAT 100
[2025-02-05 17:09] VITALS: BP 132/64
== END 2025-02-05 16:30 | disposition home or self-care (01) ==
LOC: CCL 12:31
PROVIDERS: ATTEND Internal Medicine
DX: I47.20 Ventricular tachycardia, unspecified (principal); I34.0 Nonrheumatic mitral (valve) insufficiency; I48.0 Paroxysmal atrial fibrillation; I10 Essential (primary) hypertension; E78.2 Mixed hyperlipidemia; I27.20 Pulmonary hypertension, unspecified; Z79.82 Long term (current) use of aspirin; Z79.899 Other long term (current) drug therapy
CPT/HCPCS: 93005; 85025; 80048; 36415; 85610; 85730; 71046; 93458; 76937; C1893; Q9966; J1644; J2003; J2250; J3010; J7040; 99152; 99153; J0461